=== PATIENT | female | born 1985 ===

== ENCOUNTER 2021-01-13 06:37 | Day surgery (SDC) | payer OTHER ==
[~2021-01-13 06:37] MED LIST: RESTORIL30 M1 PO; SYNTHROID75 MCG PO; TRANXENE T-TAB7.5 MG PO; ZOLOFT100 MG PO
== END 2021-01-13 10:06 | disposition home or self-care (01) ==
LOC: CIR.AMB 06:37
PROVIDERS: ATTEND Surgery Surgery of the Hand
DX: D21.12 Benign neoplasm of connective and other soft tissue of left upper limb, including shoulder (principal); Z20.822 Contact with and (suspected) exposure to COVID-19